=== PATIENT | male | born 1960 | race Caucasian/White ===

== ENCOUNTER 2022-05-01 10:42 | Emergency (ER) | payer OTHER, BC, SELFPAY ==
[2022-05-01 10:55] VITALS: BP 155/94; PULSE 83; RESP 18; TEMP 36.6; O2SAT 97; BMI 24.4
--- NOTE | 2022-05-01 11:15 | CRLHL7_ITS ---
For Patients: As a result of the Cures Act, medical imaging exams and procedure reports are released immediately into your electronic medical record. You may view this report before your referring provider. If you have questions, please contact your health care provider. Indication: Trauma. Technique: Right 4th finger 3 views. Comparison: None. Findings/Impression: Bones: Comminuted nondisplaced fracture present in the distal phalanx of the right 4th finger. No other osseous abnormality. Joint spaces: Unremarkable. Soft tissues: Soft tissue injury is adjacent to the fracture. Dictated by Elver Griffith MD @ 05/01/2022 12:03:27 PM (Electronically Signed)
[2022-05-01] MEDS: LIDOCAINE 1 % PF 30 ML INJECTION (11:35)
[2022-05-01] MEDS: TETANUS/DIPHTH/PERTUSSIS 0.5 ML SYRINGE IM (12:18)
--- NOTE | 2022-05-01 12:36 | ED_ITS ---
HPI - General Adult General Chief complaint: Laceration/Wound Stated complaint: Sliced end of right ring finger off Time Seen by Provider: 05/01/22 11:13 Source: patient Mode of arrival: ambulatory Limitations: no limitations History of Present Illness HPI narrative: 61-year-old male coming in today after closing his finger inside of the door of heavy machinery at work. He is complaining of a laceration injury to the tip of the 4th digit on the right hand. Denies other injury. Last tetanus was in 2012. Related Data Home Medications Medication Instructions Recorded Confirmed rosuvastatin 20 mg tablet mg 05/01/22 Previous Rx's Medication Instructions Recorded amoxicillin 875 mg-potassium 1 tab PO BID 7 days #14 tabs 05/01/22 clavulanate 125 mg tablet Allergies Allergy/AdvReac Type Severity Reaction Status Date / Time No Known Drug Allergies Allergy Verified 05/01/22 10:57 Review of Systems Narrative: Denies other injury. PFSH PFSH Social History Smoking Status: Former smoker What tobacco products do you use: cigarettes Years smoked: 40 Smoking quit date/years: >15 years ago Do you use any of these nicotine containing products: None Second hand tobacco smoke exposure: Yes How often do you have a drink containing alcohol: 2-4 times a month How many standard drinks containing alcohol do you have on a typical day: 5 or 6 How often do you have six or more drinks on one occasion: Weekly AUDIT-C Alcohol total score: 7 Non-prescribed substance use: denies use service: No Exam Narrative: Exam Narrative: Well-nourished well-developed patient in no acute distress. Alert and oriented. Answers questions appropriately. Mood and affect are appropriate. Thoughts are goal oriented and rational. No tangential or magical thinking noted. Patient speaks in full sentences without needing to catch their breath. HEENT: Normocephalic atraumatic. Pupils are equally round reactive to light. Extraocular muscles are intact. Conjunctivae are moist without any icterus noted. Extremities: Patient has a semi circular laceration on the fat pad of the 4th digit of the right hand. Laceration extends almost from the edge of the medial to the lateral nail bed. It goes through the skin into the subcutaneous tissue does not penetrate the subcutaneous tissue I do not see any bone visible. There is crepitus felt at the tip of the finger, consistent with a probable fracture. Remainder of the hand entirely normal. Skin: Well perfused without any obvious rashes. Const: Vital Signs, click to edit/add: Vital Signs - 24 hr 05/01/22 10:55 Temperature 97.9 F Pulse Rate [Right Pulse Oximeter] 83 Respiratory Rate 18 Blood Pressure [Ri ght Upper Arm] 155/94 H Pulse Oximetry 97 Oxygen Delivery Me thod Room Air Course Course Hospital Course: Proceeded with an x-ray of the finger which did show a tuft fracture. Wound was then cleansed with wound cleanser and soaked with saline and wound cleanser. Digital block was performed with 1% lidocaine. Tip of the finger was sutured with 4-0 Ethilon, great skin approximation patient tolerated the procedure well. No injury to the nail bed or nail itself noted. Vital Signs Vital signs: Initial Vital Signs Temperature 97.9 F 05/01/22 10:55 Temperature Source Temporal Artery Scan 05/01/22 10:55 Pulse Rate 83 05/01/22 10:55 Respiratory Rate 18 05/01/22 10:55 Blood Pressure 155/94 H 05/01/22 10:55 Blood Pressure Mean 114 05/01/22 10:55 Blood Pressure Position Sitting 05/01/22 10:55 Pulse Oximetry 97 05/01/22 10:55 Oxygen Delivery Method 05/01/22 10:55 Vital Signs Temperature 97.9 F 05/01/22 10:55 Pulse Rate 83 05/01/22 10:55 Respiratory Rate 18 05/01/22 10:55 Blood Pressure 155/94 H 05/01/22 10:55 Pulse Oximetry 97 05/01/22 10:55 Oxygen Delivery Method 05/01/22 10:55 Temperature 97.9 F 05/01/22 10:55 Pulse Rate 83 05/01/22 10:55 Respiratory Rate 18 05/01/22 10:55 Blood Pressure 155/94 H 05/01/22 10:55 Pulse Oximetry 97 05/01/22 10:55 Oxygen Delivery Method 05/01/22 10:55 Medical Decision Making MDM Narrative Medical decision making narrative: 61-year-old male with a tuft fracture and laceration to the tip of the 4th digit on the right hand. Sutured in the ED per above. Finger splint was use to protect the tip of the finger. We discussed wound hygiene, signs symptoms of infection, reasons to return to clinic in ER, and suture removal in 7-10 days. Given the depth of the laceration we did go ahead and place him on Augmentin. Tetanus shot was updated in the ED today. Imaging Data Finger x-ray: Attestation: I have reviewed the pertinent imaging results. My impression: Fracture distal phalanx 4th finger Radiologist's impression: Findings/Impression: Bones: Comminuted nondisplaced fracture present in the distal phalanx of the right 4th finger. No other osseous abnormality. Joint spaces: Unremarkable. Soft tissues: Soft tissue injury is adjacent to the fracture. Discharge Plan Discharge Clinical Impression: Laceration, Closed fracture of tuft of distal phalanx of finger Patient Disposition: Home, Self-Care Condition: Improved Additional Instructions: Keep finger clean and dry. Okay to shower like he normally would or you soapy water once a day to clean and re-dress. Wear finger splint at all times for comfort and to allow the tip of the finger to heal. Suture removal with your primary care provider in 7-10 days. Watch for signs of infection which include increasing redness of the tip of the finger which spreads down the finger in into the hand-if this occurs see your doctor right away. Take all antibiotics as prescribed. Prescriptions: New amoxicillin-pot clavulanate 875-125 mg tablet 1 tab PO BID 7 Days Qty: 14 0RF No Action rosuvastatin 20 mg tablet Follow Up/Referrals: Waylon Jeffery MD [Primary Care Provider] - Stand Alone [facility] Inst[facility]
--- NOTE | 2022-05-01 15:31 | ED.NURSE ---
wound was dressed with bacitracin, telfa, tube gauze, coban and splint.
== END 2022-05-01 12:45 | disposition home or self-care (01) ==
PROVIDERS: Emergency Provider Family Medicine; PCP Family Medicine
DX: S61.216A Laceration without foreign body of right little finger without damage to nail, initial encounter (principal); S62.636A Displaced fracture of distal phalanx of right little finger, initial encounter for closed fracture; W31.9XXA Contact with unspecified machinery, initial encounter; Y93.9 Activity, unspecified; Y92.69 Other specified industrial and construction area as the place of occurrence of the external cause; Y99.0 Civilian activity done for income or pay
CPT/HCPCS: 12001; 73140; 90471; 90715; 99282; 99284; J2001

== ENCOUNTER 2022-05-12 09:27 | Emergency (ER) | payer BC, SELFPAY ==
[2022-05-12] VITALS (8 sets, daily range): BP systolic 134–176; BP diastolic 70–104; PULSE 75–84; RESP 18; TEMP 36.8; O2SAT 93–98; BMI 25.1
--- NOTE | 2022-05-12 10:04 | ED.GENADULT ---
HPI - General Adult General Time Seen by Provider: 10:04 Date Seen: 05/12/22 Chief complaint: Arrhythmia/Palpitations Stated complaint: Arrhythmia Time Seen by Provider: 05/12/22 10:04 Source: patient, RN notes reviewed and old records reviewed Mode of arrival: ambulatory Limitations: no limitations History of Present Illness HPI narrative: Patient is a 61-year-old male referred to our ER after he was having an echo at [facility] in [place] and found to be in atrial fibrillation with a heart rate of 130-140. Patient was there for a routine echo ordered by Cardiology. The did refer him to the ER. He was asymptomatic, did not know his heart rate was that fast, did not feel it. He has not had any chest pain through this, no shortness of breath, no dyspnea on exertion. He admits that he drank quite a bit of alcohol during the football game yesterday, did drink some Red Bull too. He has states he has never been told he has a history of atrial fibrillation. Patient recently saw Cardiology on 04/08/2022, saw Dr. Lang. The echo and a coronary CTA were ordered at that visit due to his history as well as some recent GI/reflux symptoms. In August of 2019 20 patient was having dyspnea on exertion and saw Dr. Loza. He had an echo showing regional wall motion abnormalities, concern for silent inferior VT. He had a workup with cardiac MRI which confirmed the presence of a prior infarction but an EF of 47%. He went to coronary angiography in October of 2019 which showed no clear obstructive disease, the worst obstructive lesion was 50% in the right coronary artery. He was put on appropriate heart failure preventative measures. Over the time he had stop some of the medications. I do have the full office visit from April 08 and have reviewed that, will be scanned in. His CTA from 04/23/2022 showed flow limiting stenosis in the left circumflex, borderline significant flow-limiting stenosis in the proximal LAD. Recommend coronary angiography On arrival here patient is confirmed to be in normal sinus rhythm. Related Data Home Medications Medication Instructions Recorded Confirmed rosuvastatin 20 mg tablet 20 mg PO DAILY 05/01/22 05/12/22 Previous Rx's Medication Instructions Recorded amoxicillin 875 mg-potassium 1 tab PO BID 7 days #14 tabs 05/01/22 clavulanate 125 mg tablet Allergies Allergy/AdvReac Type Severity Reaction Status Date / Time No Known Drug Allergies Allergy Verified 05/01/22 10:57 Review of Systems Status of ROS: Reports: 10 or more systems reviewed and unremarkable except as noted in History and below [facility] Social History (Updated 05/01/22 @ 12:44 by Colleen Morales MD) Smoking Status: Former smoker What tobacco products do you use: cigarettes Years smoked: 40 Smoking quit date/years: >15 years ago Do you use any of these nicotine containing products: None Second hand tobacco smoke exposure: Yes How often do you have a drink containing alcohol: 2-4 times a month How many standard drinks containing alcohol do you have on a typical day: 5 or 6 How often do you have six or more drinks on one occasion: Weekly AUDIT-C Alcohol total score: 7 Non-prescribed substance use: marijuana (any form) service: No Exam Const: Vital Signs, click to edit/add: Vital Signs - 24 hr 05/12/22 09:38 05/12/22 10:00 05/12/22 11:02 Temperature 98.3 F Pulse Rate 76 Pulse Rate [Right Pulse Oximeter] 80 Respiratory Rate 18 Blood Pressure 176/93 H Blood Pressure [Le ft Upper Arm] 166/104 H Pulse Oximetry 95 98 95 Oxygen Delivery Me thod Room Air 05/12/22 11:03 05/12/22 11:32 05/12/22 11:33 Temperature Pulse Rate 75 84 80 Pulse Rate [Right Pulse Oximeter] Respiratory Rate Blood Pressure 134/70 Blood Pressure [Le ft Upper Arm] Pulse Oximetry 97 93 95 Oxygen Delivery Me thod 05/12/22 12:02 05/12/22 12:03 Temperature Pulse Rate 82 78 Pulse Rate [Right Pulse Oximeter] Respiratory Rate Blood Pressure 140/81 H Blood Pressure [Le ft Upper Arm] Pulse Oximetry 96 95 Oxygen Delivery Me thod Documenting provider has reviewed patient's vital signs: yes Common normals: no apparent distress, average body habitus, oriented x3, no limitations, healthy appearing and alert General appearance: cooperative, comfortable and well kempt HENMT: Common normals: normocephalic, head/scalp atraumatic and hearing grossly normal bilaterally Head and scalp: normocephalic and atraumatic Eye: Common normals: PERRL, EOMs intact bilaterally, conjunctivae normal and no scleral icterus Conjunctiva: conjunctiva(e) normal Pupil: PERRL Neck & C-Spine: Common normals: full ROM, no lymphadenopathy, supple, no meningeal signs, no JVD, thyroid normal and no carotid bruits Thyroid: thyroid normal Resp: Common normals: normal respiratory effort, no retractions, no use of accessory muscles and clear to auscultation bilaterally Auscultation: clear to auscultation bilaterally Cardio: Common normals: no JVD, regular rate, regular rhythm, S1 normal heart sound, S2 normal heart sound, no gallops, no clicks and no murmurs Rate: regular rate Rhythm: regular rhythm Heart sounds: S1 normal and S2 normal GI: Common normals: Normal to inspection, nondistended, normoactive bowel sounds present, soft to palpation, non-tender, no hepatosplenomegaly and no masses Palpation: soft and no hepatosplenomegaly Extremity: Common normals: normal to inspection, full ROM, normal capillary refill, no joint enlargement, no clubbing, cyanosis or edema, no calf tenderness and no pedal edema Neuro: Common normals: oriented x3 Sensorium/orientation: alert Meningeal signs: no meningeal signs Speech: speech normal Gait (neuro): normal gait Psych: Appearance: well kempt Skin: Common normals: no rashes or lesions noted General skin exam: no rashes or lesions noted Course Course Hospital Course: We will keep him on cardiac monitoring, pulse oximetry. Will get a portable chest x-ray to ensure no congestive changes in the lungs but clinically there is no CHF. Presumably this was atrial fibrillation seen on echo, do not know if there was a confirming EKG at the time. Will get appropriate lab work, likely talk to Cardiology once I have some of my results back. He is asymptomatic and in sinus rhythm at this time. Reevaluation(s) Reevaluation #1: We reviewed labs, normal chest x-ray. He has not went into any further arrhythmias while here. Patient states he has a follow-up appointment July 09 with Cardiology. Discussed with them that that really is a ways out, I highly recommend that they contact [facility] in see if he can be seen anywhere in their system sooner. It does not matter to them if they are seen in [place] or not, thus, recommend seeing if there are more expedient appointments elsewhere. At this point I do have his echo back in it shows mildly increased wall thickness, moderately reduced global systolic function with an estimated EF of 35-40%. Difficult to assess LV function and wall motion abnormalities due to image quality and the tachycardia/irregular rhythm. Possible hypokinesis of the inferior and inferolateral jaimes. Time: 12:31 Consultations Consultation #1: Spoke with cardiology on-call through [facility]. Reviewed the history. Reviewed the findings of the recent CTA. He stated he would do nothing different than have him on a baby aspirin at this time. He states that they will need to see him back for further evaluation. I will have the patient contact [facility] in get scheduled for followup. Time: 12:13 Vital Signs Vital signs: Initial Vital Signs Temperature 98.3 F 05/12/22 09:38 Temperature Source Temporal Artery Scan 05/12/22 09:38 Pulse Rate 80 05/12/22 09:38 Respiratory Rate 18 05/12/22 09:38 Blood Pressure 166/104 H 05/12/22 09:38 Blood Pressure Mean 124 05/12/22 09:38 Blood Pressure Position Sitting 05/12/22 09:38 Pulse Oximetry 95 05/12/22 09:38 Oxygen Delivery Method 05/12/22 09:38 Vital Signs Temperature 98.3 F 05/12/22 09:38 Pulse Rate 80 05/12/22 09:38 Respiratory Rate 18 05/12/22 09:38 Blood Pressure 166/104 H 05/12/22 09:38 Pulse Oximetry 95 05/12/22 09:38 Oxygen Delivery Method 05/12/22 09:38 Temperature 98.3 F 05/12/22 09:38 Pulse Rate 78 05/12/22 12:03 Respiratory Rate 18 05/12/22 09:38 Blood Pressure 140/81 H 05/12/22 12:02 Pulse Oximetry 95 05/12/22 12:03 Oxygen Delivery Method 05/12/22 09:38 Medical Decision Making Lab Data Lab results reviewed: Yes I reviewed the patient's lab results Labs: Lab Results 05/12/22 05/12/22 05/12/22 Range/Units 10:26 10:26 10:26 WBC 7.74 (4.50-11.00) K/uL RBC 5.65 (4.30-5.90) m/uL Hgb 17.2 (13.5-17.5) gm/dL Hct 50.3 (37.0-53.0) % MCV 89 (80-100) fL MCH 30 (26-34) pg MCHC 34 (32-36) gm/dL RDW Coeff of Holly 12.0 (11.5-15.5) % Plt Count 288 (140-440) K/uL Neut % (Auto) 62.0 (42.0-72.0) % Lymph % (Auto) 28.9 (20-44) % [place] % (Auto) 7.6 (0.0-11.0) % Eos % (Auto) 0.1 (0.0-7.0) % Baso % (Auto) 0.9 (0.0-3.0) % Neut # (Auto) 4.79 (1.7-7.0) K/uL Lymph # (Auto) 2.24 (0.90-2.90) K/uL [place] # (Auto) 0.60 (0.00-0.90) K/UL Eos # (Auto) 0.01 (0.00-0.50) K/uL Baso # (Auto) 0.07 (0.00-0.30) K/uL Abs Immat Gran (auto) 0.04 (0.00-0.30) K/uL Sodium 139 (135-149) mmol/L Potassium 4.6 (3.6-5.1) mmol/L Chloride 106 (96-114) mmol/L Carbon Dioxide 24 (20-32) mmol/L BUN 20 (7-30) mg/dL Creatinine 0.9 (0.5-1.5) mg/dL Estimated Creat Clear 77.57 Estimated GFR 97 ml/min Glucose 117 H (60-115) mg/dL Lactate 1.4 (0.5-1.9) mmol/L Calcium 8.6 (8.4-10.6) mg/dL Magnesium 2.3 (1.5-2.6) mg/dL Total Bilirubin 0.6 (0.1-1.5) mg/dL AST 37 H (12-35) U/L ALT 37 (4-50) U/L Alkaline Phosphatase 71 (40-150) U/L NT-Pro-B Natriuret Pep 136 H (0-125) PG/mL Total Protein 7.4 (6.0-8.3) g/dL Albumin 4.5 (3.3-5.0) g/dL POC Troponin I (0.01-0.04) ng/ml 05/12/22 Range/Units 10:26 WBC (4.50-11.00) K/uL RBC (4.30-5.90) m/uL Hgb (13.5-17.5) gm/dL Hct (37.0-53.0) % MCV (80-100) fL MCH (26-34) pg MCHC (32-36) gm/dL RDW Coeff of Holly (11.5-15.5) % Plt Count (140-440) K/uL Neut % (Auto) (42.0-72.0) % Lymph % (Auto) (20-44) % [place] % (Auto) (0.0-11.0) % Eos % (Auto) (0.0-7.0) % Baso % (Auto) (0.0-3.0) % Neut # (Auto) (1.7-7.0) K/uL Lymph # (Auto) (0.90-2.90) K/uL [place] # (Auto) (0.00-0.90) K/UL Eos # (Auto) (0.00-0.50) K/uL Baso # (Auto) (0.00-0.30) K/uL Abs Immat Gran (auto) (0.00-0.30) K/uL Sodium (135-149) mmol/L Potassium (3.6-5.1) mmol/L Chloride (96-114) mmol/L Carbon Dioxide (20-32) mmol/L BUN (7-30) mg/dL Creatinine (0.5-1.5) mg/dL Estimated Creat Clear Estimated GFR ml/min Glucose (60-115) mg/dL Lactate (0.5-1.9) mmol/L Calcium (8.4-10.6) mg/dL Magnesium (1.5-2.6) mg/dL Total Bilirubin (0.1-1.5) mg/dL AST (12-35) U/L ALT (4-50) U/L Alkaline Phosphatase (40-150) U/L NT-Pro-B Natriuret Pep (0-125) PG/mL Total Protein (6.0-8.3) g/dL Albumin (3.3-5.0) g/dL POC Troponin I 0.00 L (0.01-0.04) ng/ml Imaging Data Chest x-ray: Attestation: I have reviewed the pertinent imaging results. My impression: VT preliminary read, no acute cardiopulmonary pathology, wait radiology over-read. Radiologist's impression: Patient: AURELIO BRITT Facility:?[facility] Patient ID:?[id number] Site Patient ID:?[id number]. Site :?[id number] Study:?XRay Chest PORTABLE-05/12/2022 10:26:51 AM Ordering Physician:?Lisa Macias Final Report: Indication: Arrythmia Technique: Chest 1 view Comparison: None Findings/Impression: Cardiovascular and mediastinum: Heart size and vasculature are normal in caliber and appearance. Lungs and pleural space: Lungs are clear. No sign of infiltrate or mass. No sign of pleural effusion. No pneumothorax. Bones and soft tissues: No acute findings. Dictated by Erasto Herrmann MD @ 05/12/2022 10:34:10 AM (Electronic Signature) ECG Data Attestation: I personally reviewed and interpreted this ECG as follows: (Sinus rhythm, 84 beats per minute. No acute ischemic change. QT corrected 439 milliseconds) Prior ECG tracings: not available for review Critical Care Time Critical Care Time Critical Care Time: No Discharge Plan Discharge Clinical Impression: Tachycardia Condition: Stable Additional Instructions: If you note any further episodes of tachycardia, seek medical attention for further evaluation and an attempt to get an EKG are monitoring so that we can fully identify the rhythm. You need to contact [facility] to try to get her appointment moved up. I would contact [facility] and see if they have appointments in the [facility] instead of waiting further July 09 appointment in [place]. Taken 81 mg aspirin daily. Do try to minimize caffeine and alcohol intake. Activity Level: Activity as Tolerated Prescriptions: No Action rosuvastatin 20 mg tablet 20 mg PO DAILY amoxicillin-pot clavulanate 875-125 mg tablet 1 tab PO BID 7 Days Qty: 14 0RF Follow Up/Referrals: Waylon Jeffery MD [Primary Care Provider] - Stand Alone Forms: [facility] Info Instructions
--- NOTE | 2022-05-12 10:13 | CRLHL7_ITS ---
For Patients: As a result of the Century Cures Act, medical imaging exams and procedure reports are released immediately into your electronic medical record. You may view this report before your referring provider. If you have questions, please contact your health care provider. Indication: Arrythmia Technique: Chest 1 view Comparison: None Findings/Impression: Cardiovascular and mediastinum: Heart size and vasculature are normal in caliber and appearance. Lungs and pleural space: Lungs are clear. No sign of infiltrate or mass. No sign of pleural effusion. No pneumothorax. Bones and soft tissues: No acute findings. Dictated by Erasto Herrmann MD @ 05/12/2022 10:34:10 AM (Electronically Signed)
[2022-05-12 10:33] LABS: Lactate* 1.4 mmol/L (0.5-1.9)
[2022-05-12 10:40] LABS: Basophils Absolute Auto 0.07 K/uL (0.00-0.30); Basophils Percent Auto 0.9 % (0.0-3.0); Eosinophils Absolute Auto 0.01 K/uL (0.00-0.50); Eosinophils Percent Auto 0.1 % (0.0-7.0); Hematocrit 50.3 % (37.0-53.0); Hemoglobin* 17.2 gm/dL (13.5-17.5); Immature Granulocytes Abs Auto 0.04 K/uL (0.00-0.30); Lymphocytes Absolute Auto 2.24 K/uL (0.90-2.90); Lymphocytes Percent Auto 28.9 % (20-44); Mean Corpuscular HGB Conc 34 gm/dL (32-36); Mean Corpuscular Hemoglobin 30 pg (26-34); Mean Corpuscular Volume 89 fL (80-100); Monocytes Percent Auto 7.6 % (0.0-11.0); Neutrophils Absolute Auto 4.79 K/uL (1.7-7.0); Platelet Count* 288 K/uL (140-440); Red Blood Count 5.65 m/uL (4.30-5.90); White Blood Count* 7.74 K/uL (4.50-11.00)
[2022-05-12 11:04] LABS: Albumin* 4.5 g/dL (3.3-5.0); Chloride* 106 mmol/L (96-114); Sodium* 139 mmol/L (135-149)
[2022-05-12 11:05] LABS: Potassium* 4.6 mmol/L (3.6-5.1)
[2022-05-12 11:07] LABS: Alkaline Phosphatase* 71 U/L (40-150); Aspartate Amino Transferase* 37 U/L (12-35); Bilirubin Total* 0.6 mg/dL (0.1-1.5); Blood Urea Nitrogen* 20 mg/dL (7-30); Carbon Dioxide* 24 mmol/L (20-32); Creatinine* 0.9 mg/dL (0.5-1.5); Est. Creatinine Clearance* 77.57; Estimated Glomerular Filt Rate 97 ml/min; Glucose* 117 mg/dL (60-115); Total Protein* 7.4 g/dL (6.0-8.3)
[2022-05-12 11:08] LABS: Alanine Aminotransferase* 37 U/L (4-50); Calcium* 8.6 mg/dL (8.4-10.6); Magnesium* 2.3 mg/dL (1.5-2.6)
[2022-05-12 11:17] LABS: NT Pro B Type NatriureticPept* 136 PG/mL (0-125)
[2022-05-12 11:19] LABS: Slide Review Reflex No
[2022-05-12 14:14] LABS: TSH With Reflex to FT4* 0.837 uIU/mL (0.270-4.200)
== END 2022-05-12 12:40 | disposition home or self-care (01) ==
PROVIDERS: Emergency Provider Family Medicine; PCP Family Medicine
DX: R00.0 Tachycardia, unspecified (principal)
CPT/HCPCS: 36415; 71045; 80053; 83605; 83735; 83880; 84443; 84484; 85025; 93005; 94761; 99284

== ENCOUNTER 2024-04-24 17:20 | Emergency (ER) | payer BC, SELFPAY ==
[2024-04-24 17:46] VITALS: BP 137/70; PULSE 69; RESP 16; TEMP 36.4; O2SAT 97; BMI 25.1
--- NOTE | 2024-04-24 17:58 | CRLHL7_ITS ---
For Patients: As a result of the Cures Act, medical imaging exams and procedure reports are released immediately into your electronic medical record. You may view this report before your referring provider. If you have questions, please contact your health care provider. INDICATION: AFib, syncope. TECHNIQUE: Chest 1 views. COMPARISON: May 12, 2022. FINDINGS: Cardiovascular and mediastinum: Heart size and vasculature are normal in caliber and appearance. Lungs and pleural spaces: Lungs are clear. No sign of infiltrate or mass. No sign of pleural effusion. No pneumothorax. Bones and soft tissues: No significant findings. IMPRESSION: No acute or significant findings. Dictated by Wing Hahn MD @ 04/24/2024 6:35:02 PM (Electronically Signed)
--- NOTE | 2024-04-24 17:59 | CRLHL7_ITS ---
For Patients: As a result of the Century Cures Act, medical imaging exams and procedure reports are released immediately into your electronic medical record. You may view this report before your referring provider. If you have questions, please contact your health care provider. INDICATION: AFib, syncope. TECHNIQUE: CT head without contrast. COMPARISON: None. FINDINGS: CSF spaces: Within normal limits for age. Brain parenchyma and extra-axial spaces: The olivo-white differentiation is normal. No sign of mass, hemorrhage, or midline shift. No extra-axial fluid collection. Skull base and calvarium: The visualized paranasal sinuses and mastoid air cells demonstrate no acute or significant findings. The visualized orbits are grossly unremarkable. No skull fractures. IMPRESSION: No acute intracranial abnormality on this noncontrast study. Please note that all CT scans at this facility use dose modulation, iterative reconstruction, and/or weight-based dosing when appropriate to reduce radiation dose to as low as reasonably achievable. Dictated by Wing Hahn MD @ 04/24/2024 6:33:57 PM (Electronically Signed)
[2024-04-24] MEDS: ASPIRIN 81 MG TAB.CHEW 324 MG PO (18:00)
--- NOTE | 2024-04-24 18:00 | ED_ITS ---
HPI - General Adult General Chief complaint: Arrhythmia/Palpitations Stated complaint: afib Time Seen by Provider: 04/24/24 17:23 History of Present Illness HPI narrative: Patient is a 63 white male has had history of AFib transiently in the past he has had an echocardiogram and reports that he has had with a assumes a myocardial infarction in the past due to a cardiac MRI and wall motion abnormality. He had no obvious significant for stentable lesions on his angiogram. He has been on apixaban for about 3 years he is on that he states because of his ?heart attack?. He has also had the paroxysmal atrial fib it sounds like he was noted to be that on an echocardiogram in the past he had some mildly reduced ejection fraction he is also on carvedilol and aspirin as well as a statin and losartan ezetimibe. The patient reports no leg swelling edema bleeding or clotting problems he feels okay now. He was getting his hair cut any felt like he passed out briefly when he felt his heart racing but he did not feel like he was really going that fast. He really did not describe chest pain. He has no focal neurologic deficit. He has noted on EKG by my read to be in atrial fibrillation rate controlled at 80 beats per minute no obvious acute ST T wave change. The patient did notice that he was getting his hair cut that he did have an irregular heart rate and then subsequently had a syncopal episode. Related Data Home Medications ?Medication ?Instructions ?Recorded ?Confirmed rosuvastatin 20 mg tablet 20 mg PO DAILY 05/01/22 04/24/24 apixaban 5 mg tablet (Eliquis) 5 mg PO BID 04/24/24 04/24/24 aspirin 81 mg capsule 81 mg PO DAILY 04/24/24 04/24/24 carvedilol 6.25 mg tablet 6.25 mg PO BID 04/24/24 04/24/24 ezetimibe 10 mg tablet 10 mg PO DAILY 04/24/24 04/24/24 losartan 25 mg tablet 25 mg PO DAILY 04/24/24 04/24/24 omeprazole 20 mg capsule,delayed 20 mg PO DAILY 04/24/24 04/24/24 release Previous Rx's ?Medication ?Instructions ?Recorded amoxicillin 875 mg-potassium 1 tab PO BID 7 days #14 tabs 05/01/22 clavulanate 125 mg tablet Allergies Allergy/AdvReac Type Severity Reaction Status Date / Time No Known Drug Allergies Allergy Verified 04/24/24 17:50 Review of Systems Status of ROS: Reports: 6 or more systems reviewed and unremarkable except as noted in History and below [facility] Social History Smoking Status: Former smoker What tobacco products do you use: cigarettes Years smoked: 40 Smoking quit date/years: >15 years ago Do you use any of these nicotine containing products: None Second hand tobacco smoke exposure: Yes How often do you have a drink containing alcohol: 2-4 times a month How many standard drinks containing alcohol do you have on a typical day: 5 or 6 How often do you have six or more drinks on one occasion: Weekly AUDIT-C Alcohol total score: 7 Non-prescribed substance use: marijuana (any form) service: No Exam Narrative: Exam Narrative: Objective: Patient is alert orient x3 no facial asymmetry talks in even unlabored sentences Neck is supple Chest is clear Heart irregular regular 2/6 systolic murmur abdomen benign soft nontender extremities are no edema neurologic nonfocal EKG shows AFib rate controlled at [address] T wave changes. Const: Vital Signs, click to edit/add: Vital Signs - 24 hr 04/24/24 17:46 Temperature 97.6 F Pulse Rate [Pulse Oximeter] 69 Respiratory Rate 16 Blood Pressure [Ri ght Upper Arm] 137/70 Pulse Oximetry 97 Oxygen Delivery Me thod Room Air Course Vital Signs Vital signs: Initial Vital Signs Temperature 97.6 F 04/24/24 17:46 Temperature Source Temporal Artery Scan 04/24/24 17:46 Pulse Rate 69 04/24/24 17:46 Respiratory Rate 16 04/24/24 17:46 Blood Pressure 137/70 04/24/24 17:46 Blood Pressure Mean 92 04/24/24 17:46 Blood Pressure Position Sitting 04/24/24 17:46 Pulse Oximetry 97 04/24/24 17:46 Oxygen Delivery Method Room Air 04/24/24 17:46 Vital Signs Temperature 97.6 F 04/24/24 17:46 Pulse Rate 69 04/24/24 17:46 Respiratory Rate 16 04/24/24 17:46 Blood Pressure 137/70 04/24/24 17:46 Pulse Oximetry 97 04/24/24 17:46 Oxygen Delivery Method Room Air 04/24/24 17:46 Temperature 97.6 F 04/24/24 17:46 Pulse Rate 69 04/24/24 17:46 Respiratory Rate 16 04/24/24 17:46 Blood Pressure 137/70 04/24/24 17:46 Pulse Oximetry 97 04/24/24 17:46 Oxygen Delivery Method Room Air 04/24/24 17:46 Medications Administered Medications: Discontinued Medications Generic Name Dose Route Start Last Admin Trade Name Мария PRN Reason Stop Dose Admin Aspirin 324 mg 04/24/24 17:58 04/24/24 18:00 Aspirin 81 Mg Tab.Chew PO 04/24/24 17:59 324 mg ONCE ONE Administration Sodium Chloride 500 mls @ 500 mls/hr 04/24/24 17:58 04/24/24 20:10 0.9 % Sodium Chloride 500 Ml IV 04/24/24 18:57 Infused .Q1H ONE Infusion Medical Decision Making MDM Narrative Medical decision making narrative: [age] year white male with history of presumed coronary artery disease but no obvious significant obstruction noted on last angiogram and had an echo that showed he is in AFib at 1 point. He is on apixaban currently he had a syncopal episode at the [facility] place and subsequent is noted to be in AFib with rate control. At this point he is anticoagulated his rate is controlled. I think it be reasonable to get a head CT scan as well as a troponin and cardiac monitoring, will check electrolytes and labs. Disposition pending findings will given 500 mL normal saline bolus as well he was comfortable this plan and agreed to the process. Addendum 7:00 p.m.: The patient has a negative head CT scan, negative EKG G other than AFib by my review, he also has a negative chest x-ray by my read, his electrolytes and labs look reassuring, his CRP is negative, his troponin is 0. He feels no back to normal. He is able to eat and drink, will given him some water. In discussing the case with the patient and his sounds like he was sitting in the chair felt some upset nature of his stomach and then his put her smart watch on him and noted he is in AFib, he then had a syncopal spell briefly and then quickly respond rebounded responded. He did feel sweaty and upset in his stomach as mention. I think for that reason will do a 2nd troponin at 7:30 a.m. erick. His cardiac monitoring showed AFib with a controlled ventricular response. I suspect he had more of a vasovagal spell as they were out doing a lot a walking and shopping today and it is pretty hot humid today. She states that he has not had much fluid to drink today. He will need follow up with regular doctor, light activity recommended continue his home medications would be recommended. And return if problems or concerns if his 2nd troponin is negative. He has were comfortable this plan. With lastly I would recommend a follow-up with her fish bait picker within the next week to 10 days to discuss if he still in AFib. Given this seemed to come and go I do not think cardioversion right now makes sense. But I would recommend they talk to their fish bait picker about this and see if elective cardioversion would be an option as well at 2 not remain in AFib if he continues in that rhythm. Lab Data Labs: Lab Results 04/24/24 04/24/24 04/24/24 Range/Units 17:59 18:15 19:30 WBC 8.64 (4.50-11.00) K/uL RBC 4.91 (4.30-5.90) m/uL Hgb 15.0 (13.5-17.5) gm/dL Hct 45.7 (37.0-53.0) % MCV 93 (80-100) fL MCH 31 (26-34) pg MCHC 33 (32-36) gm/dL RDW Coeff of Holly 11.7 (11.5-15.5) % Plt Count 196 (140-440) K/uL Neut % (Auto) 51.8 (42.0-72.0) % Lymph % (Auto) 36.2 (20-44) % [place] % (Auto) 10.0 (0.0-11.0) % Eos % (Auto) 1.2 (0.0-7.0) % Baso % (Auto) 0.6 (0.0-3.0) % Neut # (Auto) 4.48 (1.7-7.0) K/uL Lymph # (Auto) 3.13 H (0.90-2.90) K/uL [place] # (Auto) 0.90 (0.00-0.90) K/UL Eos # (Auto) 0.10 (0.00-0.50) K/uL Baso # (Auto) 0.05 (0.00-0.30) K/uL Abs Immat Gran (auto) 0.02 (0.00-0.30) K/uL Imm/Tot Granulo (auto) 0.2 % Sodium 132 L (135-149) mmol/L Potassium 4.0 (3.6-5.1) mmol/L Chloride 101 (96-114) mmol/L Carbon Dioxide 22 (20-32) mmol/L Anion Gap 9 (7-15) mEq/L BUN 24 (7-30) mg/dL Creatinine 1.2 (0.5-1.5) mg/dL Estimated Creat Clear 63.01 Estimated GFR 68 ml/min Glucose 100 (60-115) mg/dL Calcium 8.7 (8.4-10.6) mg/dL Total Bilirubin 0.5 (0.1-1.5) mg/dL Direct Bilirubin 0.2 (0.0-0.5) mg/dL AST 41 H (12-35) U/L ALT 52 H (4-50) U/L Alkaline Phosphatase 56 (40-150) U/L C-Reactive Protein < 0.5 L (0.5-1.0) mg/dL NT-Pro-B Natriuret Pep 710 pg/mL Total Protein 6.7 (6.0-8.3) g/dL Albumin 4.3 (3.3-5.0) g/dL Ethyl Alcohol 0.01 (0.01-0.03) % POC Troponin I 0.00 L 0.01 (0.01-0.04) ng/ml Discharge Plan Discharge Clinical Impression: Syncope, Atrial fibrillation Patient Disposition: Home w/ Parent or Adult Condition: Improved Additional Instructions: Light activity, continue home medications, recheck with your regular doctor next 2-3 days. Return to ED as needed. Activity Level: Light activity Discharge Diet: Regular Prescriptions: No Action carvedilol 6.25 mg tablet 6.25 mg PO BID losartan 25 mg tablet 25 mg PO DAILY ezetimibe 10 mg tablet 10 mg PO DAILY Eliquis 5 mg tablet 5 mg PO BID aspirin 81 mg capsule 81 mg PO DAILY omeprazole 20 mg capsule,delayed release(DR/EC) 20 mg PO DAILY rosuvastatin 20 mg tablet 20 mg PO DAILY amoxicillin-pot clavulanate 875-125 mg tablet 1 tab PO BID 7 Days Qty: 14 0RF Follow Up/Referrals: Waylon Jeffery MD [Primary Care Provider] - Stand Alone Forms: [employer] Info Instructions
[2024-04-24] MEDS: 0.9 % SODIUM CHLORIDE 500 ML 500 ML IV (18:20)
[2024-04-24 18:23] LABS: Basophils Absolute Auto 0.05 K/uL (0.00-0.30); Basophils Percent Auto 0.6 % (0.0-3.0); Eosinophils Percent Auto 1.2 % (0.0-7.0); Hematocrit 45.7 % (37.0-53.0); Immature Granulocytes Abs Auto 0.02 K/uL (0.00-0.30); Immature Granulocytes Pct Auto 0.2 %; Lymphocytes Absolute Auto 3.13 K/uL (0.90-2.90); Lymphocytes Percent Auto 36.2 % (20-44); Mean Corpuscular HGB Conc 33 gm/dL (32-36); Mean Corpuscular Hemoglobin 31 pg (26-34); Mean Corpuscular Volume 93 fL (80-100); Neutrophils Absolute Auto 4.48 K/uL (1.7-7.0); Neutrophils Percent Auto 51.8 % (42.0-72.0); Platelet Count* 196 K/uL (140-440); RDW Coefficient of Variation % 11.7 % (11.5-15.5); Red Blood Count 4.91 m/uL (4.30-5.90); White Blood Count* 8.64 K/uL (4.50-11.00)
[2024-04-24 18:26] LABS: Slide Review Reflex No
[2024-04-24 18:36] LABS: Albumin* 4.3 g/dL (3.3-5.0); Chloride* 101 mmol/L (96-114)
[2024-04-24 18:37] LABS: Sodium* 132 mmol/L (135-149)
[2024-04-24 18:39] LABS: Creatinine* 1.2 mg/dL (0.5-1.5); Est. Creatinine Clearance* 63.01; Estimated Glomerular Filt Rate 68 ml/min
[2024-04-24 18:40] LABS: Alanine Aminotransferase* 52 U/L (4-50); Alkaline Phosphatase* 56 U/L (40-150); Anion Gap 9 mEq/L (7-15); Aspartate Amino Transferase* 41 U/L (12-35); Bilirubin Direct* 0.2 mg/dL (0.0-0.5); Bilirubin Total* 0.5 mg/dL (0.1-1.5); Blood Urea Nitrogen* 24 mg/dL (7-30); Calcium* 8.7 mg/dL (8.4-10.6); Carbon Dioxide* 22 mmol/L (20-32); Glucose* 100 mg/dL (60-115); Total Protein* 6.7 g/dL (6.0-8.3)
[2024-04-24 18:41] LABS: Ethanol* 0.01 % (0.01-0.03)
[2024-04-24 18:45] LABS: C Reactive Protein* < 0.5 mg/dL (0.5-1.0)
[2024-04-24 18:49] LABS: NT Pro B Type NatriureticPept* 710 pg/mL
[2024-04-24 19:42] LABS: Troponin, Point-of-Care* 0.01 ng/ml (0.01-0.04)
== END 2024-04-24 20:10 | disposition home or self-care (01) ==
PROVIDERS: Emergency Provider Family Medicine; PCP Family Medicine
DX: I48.91 Unspecified atrial fibrillation (principal); R55 Syncope and collapse
CPT/HCPCS: 36415; 70450; 71045; 80048; 80076; 82077; 83880; 84484; 85025; 86140; 93005; 99284; 99285; A9270; J7030